=== PATIENT | male | born 1970 | race Two or more races ===

== ENCOUNTER 2018-07-12 10:04 | Emergency (ER) | payer OTHER ==
[~2018-07-12] VITALS: Ht 167.6 cm; Wt 93.4 kg
[2018-07-13 08:14] LABS: HCV ANTIBODY 0.1 (0.0-0.9); HIV SCREEN 4TH GENERATION WRFX Non Reactive (Non Reactive)
== END 2018-07-12 10:45 | disposition home or self-care (01) ==
LOC: ER 10:04
PROVIDERS: Physician Assistant
DX: S61.032A Puncture wound without foreign body of left thumb without damage to nail, initial encounter (principal); W46.0XXA Contact with hypodermic needle, initial encounter
CPT/HCPCS: 36415; 84460; 86317; 86803; 87389; 99282